=== PATIENT | male | born 1990 | race Two or more races ===

== ENCOUNTER 2022-02-15 01:31 | Emergency (ER) | payer MEDICAID ==
[~2022-02-15] VITALS: Ht 172.7 cm; Wt 180.0 kg
[2022-02-15 02:30] VITALS: BP 138/85
[2022-02-15] MEDS ORDERED: DIPH25CA66 PO (05:10)
[2022-02-15] MEDS ORDERED: PRED20TA2 PO (05:10)
[2022-02-15] MEDS ORDERED: methylPREDNISolone SOD SUCC 125 MG/2 ML VL IM ONE (05:15)
[2022-02-15] MEDS ORDERED: diphenhdrAMINE HCL 50 MG/1 ML VL IM ONE (05:15)
== END 2022-02-15 06:33 | disposition home or self-care (01) ==
LOC: ER 01:31
DX: L25.9 Unspecified contact dermatitis, unspecified cause (principal)
CPT/HCPCS: 96372; 99284; J1200; J2930